=== PATIENT | female | born 1940 | race Native Hawaiian/Other Pacific Islander ===

== ENCOUNTER 2016-08-05 18:40 | Emergency (ER) | payer OTHER ==
[~2016-08-05] VITALS: Ht 165.1 cm; Wt 70.3 kg
[2016-08-05 19:13] LABS: PLATELET COUNT 277 K/uL (152-353)
[2016-08-05 19:15] VITALS: BP 192/86; TEMP 98.7
[2016-08-05] MEDS ORDERED: DIOVAN320 MG PO (19:20)
[2016-08-05] MEDS ORDERED: LYRICA50 MG PO (19:20)
[2016-08-05 19:21] LABS: SODIUM 130 mmol/L (136-145)
[2016-08-05] MEDS ORDERED: ASPIRIN LOW STR81 MG PO (19:21)
[2016-08-05] MEDS ORDERED: SIMV20TA2 PO (19:21)
[2016-08-05 19:33] LABS: PARTIAL THROMBOPLASTIN TIME 22.9 SECONDS (24.5-33.6)
== END 2016-08-05 20:39 | disposition short-term general hospital (02) ==
LOC: ED 18:40
PROVIDERS: Specialist
DX: I61.8 Other nontraumatic intracerebral hemorrhage (principal); I62.00 Nontraumatic subdural hemorrhage, unspecified
CPT/HCPCS: 36415; 80048; 82550; 83880; 84484; 85027; 85379; 85610; 85730; 96374; 99291; J1885; J2060

== ENCOUNTER 2016-12-19 09:39 | Outpatient (CLI) | payer OTHER ==
[~2016-12-19 09:39] MED LIST: ASPIRIN LOW STR81 MG PO; DIOVAN320 MG PO; LYRICA50 MG PO; SIMV20TA2 PO
== END 2016-12-19 19:27 | disposition home or self-care (01) ==
LOC: US 09:39
DX: N64.4 Mastodynia (principal); Z85.3 Personal history of malignant neoplasm of breast

== ENCOUNTER 2019-11-10 13:16 | Outpatient (CLI) | payer OTHER | END 2019-11-10 20:42 | disposition home or self-care (01) | LOC: LAB 13:16 | DX: R56.9 Unspecified convulsions (principal) | CPT/HCPCS: 82542 ==

== ENCOUNTER 2019-11-23 12:33 | Outpatient (CLI) | payer OTHER | END 2019-11-23 22:23 | disposition home or self-care (01) | LOC: LAB 12:33 | DX: R56.9 Unspecified convulsions (principal) | CPT/HCPCS: 82542 ==